=== PATIENT | male | born 1935 | race Caucasian/White ===

== ENCOUNTER 2016-12-02 06:48 | Day surgery (SDC) | payer MEDICARE, OTHER ==
--- NOTE | ~2016-12-02 | EGD ---
EGD REPORT [facility] [address] [id number] NAME: YRN GONZALEZ : [birth year] STATUS : REG [facility]#: [id number] AGE: 81 ADM/REG DATE : 12/02/16 MR#: [id number] REPORT SERV DATE: 12/02/16 DICTATED BY: MANDEEP BENSNO DATE: 12/02/16 REPORT STATUS : Draft [facility]: [facility] DATE: 12/02/16 [facility] Patient Name: Yrn Gonzalez. Date of : 1935 Attending MD: JELENA BENSON MD Procedure Date No Time: 12/02/2016 Procedure: Colonoscopy Indications: High risk colon cancer surveillance: Personal history of colonic polyps, Last colon 10/22/11. Had adenomatous polyp 07/09/08 Referring MD: LEANNE CACERES Medicines: See the Anesthesia note for documentation of the administered medications Complications: No immediate complications. Estimated blood loss: None. Procedure: Pre-Anesthesia Assessment: - ASA Grade Assessment: III - A patient with severe systemic disease. After I obtained informed consent, the scope was passed under direct vision. Throughout the procedure, the patient's blood pressure, pulse, and oxygen saturations were monitored continuously. The PCF [id number] was introduced through the anus and advanced to the cecum, identified by appendiceal orifice and ileocecal valve. The ileocecal valve, appendiceal orifice and rectum were photographed. The entire colon was examined. The colonoscopy was performed without difficulty. The patient tolerated the procedure well. The quality of the bowel preparation was adequate. Findings: The perianal and digital rectal examinations were normal. Two sessile polyps were found in the mid ascending colon. The polyps were small in size. These polyps were removed with a cold snare. Resection and retrieval were complete. Multiple small and large-mouthed diverticula were found in the sigmoid colon, in the descending colon, at the splenic flexure and in the distal transverse colon. Non-bleeding internal hemorrhoids were found during retroflexion and were Grade I (internal hemorrhoids that do not prolapse). No other significant abnormalities were identified in a careful examination of the remainder of the colon. Impression: - Two small polyps in the mid ascending colon. Resected and retrieved. - Diverticulosis in the sigmoid colon, in the descending EGD REPORT [facility] [id number] [place]. [address] NAME: YRN GONZALEZ : 35 STATUS : REG [facility]#: [id number] AGE: 81 ADM/REG DATE : 12/02/16 MR#: [id number] REPORT SERV DATE: 12/02/16 DICTATED BY: MANDEEP BENSON DATE: 12/02/16 REPORT STATUS : Draft [facility]: [facility] DATE: 12/02/16 colon, at the splenic flexure and in the distal transverse colon. - Non-bleeding internal hemorrhoids. Recommendation: - Patient has a contact number available for emergencies. The signs and symptoms of potential delayed complications were discussed with the patient. Return to normal activities tomorrow. Written discharge instructions were provided to the patient. - High fiber diet indefinitely. - Discharge patient to home. - Continue present medications. - Await pathology results. - Repeat colonoscopy is not recommended for surveillance. Procedure Code(s): --- Professional --- 83875, Colonoscopy, flexible, proximal to splenic flexure; with removal of tumor(s), polyp(s), or other lesion(s) by snare technique Diagnosis Code(s): --- Professional --- D12.2, Benign neoplasm of ascending colon K64.0, First degree hemorrhoids K57.30, Diverticulosis of large intestine without perforation or abscess without bleeding Z86.010, Personal history of colonic polyps CPT copyright 2013 [employer]. All rights reserved. The codes documented in this report are preliminary and upon refining machine operator review may be revised to meet current compliance requirements. JELENA BENSON MD 12/02/2016 9:05 AM This report has been signed electronically. Number of Addenda: 0 Note Initiated On: 12/02/2016 7:55 AM Scope Withdrawal Time 0 hours 9 minutes 14 seconds [id number] [place] [id number]
[~2016-12-02 06:48] MED LIST: ACCU20 PO; ASA5GR PO; CEREFOLIN NAC; CEREFOLINNAC PO; COQ-1010 MG PO; DOK100 MG PO; ECOTRIN81 MG PO; MAX25 PO; MELA3 PO; PCET PO; PRILO PO; SYN.15 PO; TOPXL25 PO; V2 PO; ZOCOR40 PO
== END 2016-12-02 23:59 | disposition home or self-care (01) ==
LOC: DMU 06:48
PROVIDERS: Internal Medicine Gastroenterology
PROC: 0DBK8ZZ Excision of Ascending Colon, Via Natural or Artificial Opening Endoscopic (ICD-10-PCS; principal; 2016-12-02 08:30)
DX: Z12.11 Encounter for screening for malignant neoplasm of colon (principal); D12.2 Benign neoplasm of ascending colon; K64.0 First degree hemorrhoids; K57.30 Diverticulosis of large intestine without perforation or abscess without bleeding; Z86.010 Personal history of colon polyps; H81.09 Meniere's disease, unspecified ear; I10 Essential (primary) hypertension; I25.10 Atherosclerotic heart disease of native coronary artery without angina pectoris; Z95.5 Presence of coronary angioplasty implant and graft; J45.909 Unspecified asthma, uncomplicated; K21.9 Gastro-esophageal reflux disease without esophagitis; E06.3 Autoimmune thyroiditis; Z79.899 Other long term (current) drug therapy; Z79.82 Long term (current) use of aspirin; Z88.0 Allergy status to penicillin; Z79.891 Long term (current) use of opiate analgesic
CPT/HCPCS: 88305